=== PATIENT | female | born 1950 | race Caucasian/White ===

== ENCOUNTER 2023-02-05 14:54 | Inpatient (IN) | payer MEDICARE ==
[~2023-02-05] VITALS: Ht 162.6 cm; Wt 128.8 kg
[2023-02-05 15:00] VITALS: PULSE 125; RESP 24; TEMP 97.9; O2SAT 95
[2023-02-05] MEDS ORDERED: IPRATROPIUM/ALBUTEROL SULFATE 3 ML AMPUL.NEB (DUONEB) INH ONE (15:00)
[2023-02-05] MEDS ORDERED: ACETAMINOPHEN 500 MG TABLET ONE (15:43)
[2023-02-05] MEDS ORDERED: ACETAMINOPHEN 325 MG TABLET PO ONE (15:45)
[2023-02-05 15:49] LABS: LYMPHOCYTES # (AUTO) 0.8 K/uL (1.0-5.5); LYMPHOCYTES % (AUTO) 7.7 % (20.5-51.5); MEAN CORPUSCULAR VOLUME 81 fL (79.0-98.0)
[2023-02-05 15:52] LABS: ANION GAP 17 (5-15); CALCIUM 8.1 mg/dL (8.4-11.0); CHLORIDE 93 mmol/L (98-107); GLUCOSE 148 mg/dL (74-106); UREA NITROGEN, BLOOD 42 mg/dL (8-21)
[2023-02-05 16:01] LABS: INR 1.2 (0.8-1.2); PROTHROMBIN TIME 12.2 SECS (9.5-12.5)
[2023-02-05 16:04] LABS: BASOPHILS # (AUTO) 0.1 K/uL (0.0-0.2); BASOPHILS % (AUTO) 0.5 % (0.0-2.0); EOSINOPHILS % (AUTO) 0.1 % (0.0-4.0); HEMOGLOBIN 15.6 g/dL (12.0-16.0); MEAN CORPUSCULAR HEMOGLOBIN 27 pg (27-31); MEAN CORPUSCULAR HGB CONC 33 % (32-36); MONOCYTES # (AUTO) 0.6 K/uL (0.0-1.0); MONOCYTES % (AUTO) 5.6 % (1.7-9.3); NEUTROPHILS # (AUTO) 9.3 K/uL (1.8-7.7); NEUTROPHILS % (AUTO) 86.1 % (40.0-70.0); PLATELET COUNT (AUTO) 168 K/uL (130-430); RED BLOOD CELL COUNT(AUTO) 5.78 MIL/uL (4.2-6.2); RED CELL DISTRIBUTION WIDTH 16.4 % (9.0-15.0); WHITE BLOOD COUNT (AUTO) 10.8 K/uL (4.8-10.8)
[2023-02-05 16:10] LABS: ALANINE AMINOTRANSFERASE 49 U/L (12-78); ALBUMIN 2.4 g/dL (3.4-4.8); ASPARTATE AMINOTRANSFERASE 98 U/L (10-37); FREE T4 (FREE THYROXINE) 1.2 ng/dL (0.6-1.6); THYROID STIMULATING HORMONE 1.99 uIu/mL (0.34-4.82); TOTAL BILIRUBIN 0.6 mg/dL (0.0-1.0)
[2023-02-05] MEDS ORDERED: NACL 0.9% 1,000 ML IV ONE (16:30)
[2023-02-05] MEDS ORDERED: PIPERACILLIN/TAZO 3.375 GM in NS 50 ML IV ONE (16:45)
[2023-02-05] MEDS ORDERED: PIPERACILLIN/TAZOBACTAM 3.375 GM/VIAL (ZOSYN) IV ONE (17:12)
[2023-02-05] MEDS ORDERED: PIPERACILLIN/TAZO 4.5 GM in NS 100 ML IV ONE (17:30)
[2023-02-05] MEDS ORDERED: VANCOMYCIN HCL 1.25 GM/NS 250 ML IV ONE (17:30)
[2023-02-05] MEDS ORDERED: KETOROLAC TROMETHAMINE 30 MG VIAL IVP ONE (17:30)
[2023-02-05] MEDS ORDERED: TIOT4MIS2 INH (18:23)
[2023-02-05] MEDS ORDERED: BUDE6HFA INH (18:23)
[2023-02-05] MEDS ORDERED: IPRATROPIUM/ALBUTEROL SULFATE 3 ML AMPUL.NEB (DUONEB) INH PRN (18:45)
[2023-02-05] MEDS ORDERED: AZITHROMYCIN 500 MG in NS 250 ML IV SCH (19:00)
[2023-02-05] MEDS: METHYLPREDNISOLONE SOD SUCC 40 MG/ML VIAL IVP SCH ×2 (19:00→20:43)
[2023-02-05] MEDS: IPRATROPIUM/ALBUTEROL SULFATE 3 ML AMPUL.NEB (DUONEB) INH SCH ×2 (19:00→23:00)
[2023-02-05 19:09] VITALS: BP_SYST 148; PULSE 122; O2SAT 97
[2023-02-05] MEDS ORDERED: PIPERACILLIN/TAZOBACTAM 2.25 GM VIAL IV ONE (20:33)
[2023-02-05] MEDS ORDERED: AZITHROMYCIN 500 MG/VIAL (ZITHROMAX) IV ONE (20:33)
[2023-02-05] MEDS ORDERED: ENOXAPARIN SODIUM 30 MG/0.3 ML SYRINGE SUBCUT SCH (21:00)
[2023-02-05 21:36] VITALS: BP_SYST 90; PULSE 105; RESP 20; TEMP 98.6; O2SAT 95
[2023-02-05 22:41] LABS: BILIRUBIN,URINE 1+ (NEGATIVE); CLARITY/URINE CLOUDY (CLEAR); COLOR,URINE YELLOW (YELLOW); GLUCOSE,URINE NEGATIVE (NEGATIVE); KETONES,URINE NEGATIVE (NEGATIVE); LEUKOCYTE ESTERASE ,URINE TRACE (NEGATIVE); NITRITE, URINE NEGATIVE (NEGATIVE); PH,URINE 5.5 (5.0-8.0); PROTEIN URINE 2+ (NEGATIVE); UROBILINOGEN,URINE 0.2 (0.2-1.0)
[2023-02-05 22:43] LABS: BLOOD, URINE TRACE (NEGATIVE)
[2023-02-05] MEDS: PIPERACILLIN/TAZO 2.25G/DEX-IS 50 ML IV SCH (23:26)
[2023-02-05] MEDS: NACL 0.9% 1,000 ML IV SCH (23:27)
[2023-02-05 23:43] LABS: BACTERIA,URINE MANY /HPF (None Seen); FINE GRANULAR CASTS,URINE 0-10 /LPF (None Seen); MUCUS,URINE None Seen /LPF (None Seen); WBC,URINE 20-50 /HPF (0-3)
[2023-02-05 23:54] VITALS: O2SAT 92
[2023-02-06] VITALS (8 sets, daily range): BP systolic 104–131; PULSE 99–105; RESP 16–20; TEMP 97–98.1; O2SAT 92–95
[2023-02-06] MEDS: IPRATROPIUM/ALBUTEROL SULFATE 3 ML AMPUL.NEB (DUONEB) INH SCH ×4 (03:00→15:37)
[2023-02-06] MEDS: PIPERACILLIN/TAZO 2.25G/DEX-IS 50 ML IV SCH ×3 (05:34→17:40)
[2023-02-06 06:50] LABS: BASOPHILS % (AUTO) 0.2 % (0.0-2.0); HEMATOCRIT 40.1 % (36-48); HEMOGLOBIN 13.1 g/dL (12.0-16.0); LYMPHOCYTES # (AUTO) 0.3 K/uL (1.0-5.5); LYMPHOCYTES % (AUTO) 4.4 % (20.5-51.5); MEAN CORPUSCULAR HEMOGLOBIN 27 pg (27-31); MEAN CORPUSCULAR HGB CONC 33 % (32-36); MEAN CORPUSCULAR VOLUME 81 fL (79.0-98.0); MONOCYTES # (AUTO) 0.2 K/uL (0.0-1.0); MONOCYTES % (AUTO) 3.2 % (1.7-9.3); NEUTROPHILS # (AUTO) 5.3 K/uL (1.8-7.7); NEUTROPHILS % (AUTO) 92.2 % (40.0-70.0); PLATELET COUNT (AUTO) 133 K/uL (130-430); RED BLOOD CELL COUNT(AUTO) 4.95 MIL/uL (4.2-6.2); WHITE BLOOD COUNT (AUTO) 5.7 K/uL (4.8-10.8)
[2023-02-06 07:35] LABS: ALANINE AMINOTRANSFERASE 55 U/L (12-78); ALBUMIN 1.9 g/dL (3.4-4.8); ANION GAP 13 (5-15); ASPARTATE AMINOTRANSFERASE 107 U/L (10-37); CALCIUM 7.2 mg/dL (8.4-11.0); CHLORIDE 96 mmol/L (98-107); CREATININE 4.41 mg/dL (0.55-1.30); GLUCOSE 142 mg/dL (74-106); TOTAL BILIRUBIN 0.6 mg/dL (0.0-1.0); UREA NITROGEN, BLOOD 58 mg/dL (8-21)
[2023-02-06] MEDS: METHYLPREDNISOLONE SOD SUCC 40 MG/ML VIAL IVP SCH (10:14)
[2023-02-06] MEDS: NACL 0.9% 1,000 ML IV SCH (10:15)
[2023-02-06] MEDS ORDERED: PANTOPRAZOLE SODIUM 40 MG TAB PO ONE (17:00)
[2023-02-06] MEDS ORDERED: guaiFENesin/DEXTROMETHORPHAN 10 ML UDC PO PRN (17:00)
[2023-02-07] MEDS ORDERED: PANTOPRAZOLE SODIUM 40 MG TAB PO SCH (09:00)
== END 2023-02-06 18:40 | disposition short-term general hospital (02) | DRG 871 ==
LOC: SED 14:54 → STU 18:03
PROVIDERS: ADMIT Internal Medicine; ATTEND Internal Medicine
DX: A41.9 Sepsis, unspecified organism (principal); E43 Unspecified severe protein-calorie malnutrition; J96.01 Acute respiratory failure with hypoxia; J18.9 Pneumonia, unspecified organism; J44.1 Chronic obstructive pulmonary disease with (acute) exacerbation; E87.1 Hypo-osmolality and hyponatremia; E87.20 Acidosis, unspecified; J44.0 Chronic obstructive pulmonary disease with (acute) lower respiratory infection; N17.9 Acute kidney failure, unspecified; I24.8 Other forms of acute ischemic heart disease; Z68.42 Body mass index [BMI] 45.0-49.9, adult; Z20.822 Contact with and (suspected) exposure to COVID-19; M16.9 Osteoarthritis of hip, unspecified; R91.8 Other nonspecific abnormal finding of lung field; I12.9 Hypertensive chronic kidney disease with stage 1 through stage 4 chronic kidney disease, or unspecified chronic kidney disease; E66.01 Morbid (severe) obesity due to excess calories; N18.9 Chronic kidney disease, unspecified; G89.29 Other chronic pain; M54.9 Dorsalgia, unspecified; Z90.49 Acquired absence of other specified parts of digestive tract; Z99.81 Dependence on supplemental oxygen; Z87.891 Personal history of nicotine dependence; Z79.52 Long term (current) use of systemic steroids; Z99.3 Dependence on wheelchair; Z98.891 History of uterine scar from previous surgery
CPT/HCPCS: 36415; 71045; 71250-TC; 76376; 76770; 80053; 81000; 83605; 83735; 83880; 83935; 84439; 84443; 84484; 85025; 85610-TC; 85730-TC; 87040; 87086; 93005; 93306; 94640; 94760; 96365; 96366; 96367; 96375; 99291; 99292; G0378; J0456; J1030; J1650; J1885; J2543; J3370; J7030; J7050